=== PATIENT | male | born 1990 | race American Indian/Alaskan Native ===

== ENCOUNTER 2018-03-29 11:06 | Outpatient (CLI) | payer OTHER | END 2018-03-29 11:10 | disposition home or self-care (01) | LOC: SONOGRAMA 11:06 | DX: M25.562 Pain in left knee (principal) ==

== ENCOUNTER 2018-12-30 10:48 | Outpatient (CLI) | payer OTHER | END 2018-12-30 10:50 | disposition home or self-care (01) | LOC: RAD 10:48 | DX: M54.2 Cervicalgia (principal) ==